=== PATIENT | female | born 2000 | race Caucasian/White ===

== ENCOUNTER 2019-10-23 19:04 | Emergency (ER) | payer OTHER ==
[~2019-10-23] VITALS: Ht 167.6 cm; Wt 52.2 kg
[2019-10-23] MEDS ORDERED: ZITHROMAX250 MG PO (19:48)
== END 2019-10-23 19:54 | disposition home or self-care (01) ==
LOC: ED 19:04
DX: J32.9 Chronic sinusitis, unspecified (principal)